=== PATIENT | male | born 1975 | race African-American/Black ===

== ENCOUNTER → 2017-04-16 12:57 | Outpatient (CLI) | payer MEDICAID ==
[2014-01-06 05:57] VITALS: BMI 47.2
[~2017-04-16 12:57] MED LIST: NORCO 10/325 TA1 TA1 PO
== END | disposition home or self-care (01) ==
LOC: D.MRI 12:57
DX: S83.222A Peripheral tear of medial meniscus, current injury, left knee, initial encounter (principal)

== ENCOUNTER 2017-05-15 05:40 | Day surgery (SDC) | payer MEDICAID ==
[2017-05-13 10:11] LABS: HEMATOCRIT 40.3 % (42.0-54.0); HEMOGLOBIN 13.3 g/dL (13.5-17.5); MCH 25.7 pg (26.0-34.0); MCV 77.9 fL (80.0-100.0); MEAN PLATELET VOLUME 10.5 fL (7.4-10.4); RBC 5.17 10x6/uL (4.20-6.10); RDW 13.7 % (11.5-14.5); WBC 6.3 10x3/uL (4.8-10.8)
[2017-05-13 10:22] LABS: CALC OSMOLALITY 286 mosm/kg (275-300); CALCIUM 8.6 mg/dL (8.5-10.1); CARBON DIOXIDE 27.2 mmol/L (21.0-32.0); CHLORIDE - SERUM 103 mmol/L (98-107); CREATININE - SERUM 0.9 mg/dL (0.6-1.3); POTASSIUM - SERUM 3.4 mmol/L (3.5-5.1); SODIUM 141 mmol/L (136-145); UREA NITROGEN 15 mg/dL (7-18); eGFR NON AFRICAN AMERICAN > 90 mL/min (90-120)
[2017-05-13 10:29] LABS: GLUCOSE 195 mg/dL (74-106)
[~2017-05-15] VITALS: Ht 172.7 cm; Wt 123.8 kg
[~2017-05-15 05:40] MED LIST changes: +CHLORTHALIDONE25 MG PO; +GLUCOPHAGE1000 MG PO; +HUMALOG MIX 50/53 ML SC; +ZESTRIL40 MG PO
[2017-05-15 08:25] VITALS: BP 117/81; Ht 172.7 cm; Wt 123.8 kg
[2017-05-15] MEDS ORDERED: HYDROCODONE-APA1 TAB PO (09:59)
--- NOTE | 2017-05-15 12:27 | NUR ---
1215 DISHCARGE INSTRUCTIONS COMPLETE. HE HAS NO QUESTIONS OR CONCERNS AT THIS TIME. PRESCRIPTION FOR NORCO GIVEN. ESCORTED OUT BY VOLUNTEER.
--- NOTE | 2017-05-16 14:55 | OP ---
PATIENT NAME: ALISTAIR SERRANO MEDICAL RECORD: [id number] :79 LOCATION:[facility] ADMISSION DATE: SURGEON: MADDIE HINOJOSA MD DATE OF OPERATION: 05/15/2017 PREOPERATIVE DIAGNOSIS: Lateral meniscus tear of the left knee. POSTOPERATIVE DIAGNOSIS: Lateral meniscus tear of the left knee. PROCEDURE: Arthroscopic partial lateral meniscectomy of the left knee. SURGEON: Maddie Hinojosa M.D. ANESTHESIA: General. INTRAOPERATIVE COMPLICATIONS: None. SUMMARY OF PATHOLOGIC FINDINGS: The patient has a complex tear of the posterior horn of the lateral meniscus where he had had a previous lateral meniscus tear. This was split with a loose posterior lateral and posterior medial of the lateral horn, both subluxable into the joint space. OPERATIVE SUMMARY IN DETAIL: After obtaining the appropriate preoperative orthopedic surgery consent as well as anesthetic consultation, evaluation and clearance, the patient was brought to the operating room and placed on the operating table in supine position. After adequate general laryngeal mask was administered, tourniquet was placed about the proximal aspect of the left lower extremity. Left lower extremity was then prepped and draped in routine sterile fashion. The leg was elevated and exsanguinated, tourniquet inflated to 350 mmHg. Routine inferolateral portal was established followed by superomedial portal and inferomedial portal. Diagnostic arthroscopy did reveal the above findings. Attention was turned to the lateral meniscus. The medial meniscus was in excellent overall condition. A combination of an arthroscopic resector as well as a meniscotome were utilized to debride the meniscus medially and laterally back to stable meniscal elements. Having completed this, the knee was insufflated with 30 cc of 0.25% Marcaine with epinephrine and 40 mg of Depo-Medrol. Arthroscopy portals were closed in routine interrupted fashion using 4-0 Prolene. Sterile dressings were applied. The patient was awakened, taken to recovery room in stable condition. All final needle and sponge counts were correct. TRANSINT:[id number] Voice Confirmation ID: [id number] DOCUMENT ID: [id number] MADDIE HINOJOSA MD at 1455 CC: [id number] DICTATION DATE: 05/15/17 1324 MEDICAL CLAIMS EXAMINER: 05/15/171950 [facility] 05/15/17 [facility] [address] [place] [address]
== END 2017-05-15 12:15 | disposition home or self-care (01) ==
LOC: D.OPS 05:40 → D.PAN 09:40 → D.OPS 09:45 → D.PAN 11:30 → D.OPS 12:15
PROVIDERS: Anesthesiology
DX: S83.282A Other tear of lateral meniscus, current injury, left knee, initial encounter (principal); I10 Essential (primary) hypertension; G47.30 Sleep apnea, unspecified; E11.9 Type 2 diabetes mellitus without complications; E66.9 Obesity, unspecified; Z01.812 Encounter for preprocedural laboratory examination